=== PATIENT | male | born 1970 | race African-American/Black ===

== ENCOUNTER 2018-11-22 15:46 | Emergency (ER) | payer SELFPAY ==
[2018-11-22] MEDS ORDERED: NORMAL SALINE 1000 ML 1,000 ML IV ONE ×2 (17:04→19:06)
--- NOTE | 2018-11-22 17:12 | ER Document Report ---
ED Medical Screen (RME) - General Chief Complaint: Urinary Problem Stated Complaint: URINARY PROBLEM Time Seen by Provider: 11/22/18 17:04 Mode of Arrival: Ambulatory Information source: Patient Notes: 48-year-old male presents to ED for complaint of frequency urgency of urine and feels like something is just not right with him. He states he is just not feeling like his normal self. He states his vision has become worse over the last several weeks. He states he has not seen an MD and at least 6 or 7 years. He denies any nausea or vomiting or diarrhea. He denies any pain. Patient is alert oriented respirations regular and unlabored speaking in full sentences. He states he does not smoke he drinks maybe once a month and does not use any drugs. 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 I have greeted and performed a rapid initial assessment of this patient. A comprehensive ED assessment and evaluation of the patient, analysis of test results and completion of medical decision making process will be conducted by an additional ED providers. TRAVEL OUTSIDE OF THE [place] IN LAST 30 DAYS: No - Related Data Allergies/Adverse Reactions: No Known Allergies Allergy (Verified 11/22/18 16:01) Past Medical History Renal/ Medical History: Denies: Hx Peritoneal Dialysis Physical Exam - Vital signs Vitals: Temp Pulse Resp BP Pulse Ox 98.5 F 108 H 18 149/94 H 99 11/22/18 16:03 11/22/18 16:03 11/22/18 16:03 11/22/18 16:03 11/22/18 16:03 Course - Vital Signs Vital signs: Temp Pulse Resp BP Pulse Ox 98.5 F 108 H 18 149/94 H 99 11/22/18 16:03 11/22/18 16:03 11/22/18 16:03 11/22/18 16:03 11/22/18 16:03
[2018-11-22 17:59] LABS: ABSOLUTE BASOPHILS # (AUTO) 0.1 10^3/uL (0.0-0.2); ABSOLUTE LYMPHOCYTES (AUTO) 2.1 10^3/uL (0.5-4.7); ABSOLUTE MONOCYTES (AUTO) 0.5 10^3/uL (0.1-1.4); ABSOLUTE NEUT (AUTO) 4.8 10^3/uL (1.7-8.2); BASOPHILS % (AUTO) 0.8 % (0-2); EOSINOPHILS % (AUTO) 0.6 % (0-6); HEMATOCRIT 47.5 % (37.9-51.0); HEMOGLOBIN 15.7 g/dL (13.5-17.0); LYMPHOCYTES % (AUTO) 27.6 % (13-45); MEAN CORPUSCULAR HEMOGLOBIN 26.2 pg (27.0-33.4); MEAN CORPUSCULAR VOLUME 79 fl (80-97); PLATELET COUNT 306 10^3/uL (150-450); RED BLOOD COUNT 5.99 10^6/uL (4.35-5.55); RED CELL DISTRIBUTION WIDTH 16.1 % (11.5-14.0); TOTAL CELLS COUNTED % (AUTO) 100 %; WHITE BLOOD COUNT 7.5 10^3/uL (4.0-10.5)
[2018-11-22 18:11] LABS: VENOUS BLOOD BASE EXCESS -0.8 mmol/L; VENOUS BLOOD HCO3 23.1 mmol/L (20-32); VENOUS BLOOD PCO2 36.4 mmHg (35-63); VENOUS BLOOD PH 7.42 (7.30-7.42)
--- NOTE | 2018-11-22 18:12 | ER Document Report ---
ED General - General Chief Complaint: Urinary Problem Stated Complaint: URINARY PROBLEM Time Seen by Provider: 11/22/18 18:12 Mode of Arrival: Ambulatory Information source: Patient Notes: HISTORY OF PRESENT ILLNESS: Patient is a 48-year-old male with no significant past medical history who p resents with increased thirst and frequency of urination for the past several days. Patient denies fevers or chills, no cough or congestion, no pain or dysuria. Otherwise patient feels normal without weakness or fatigue. Location: Global Onset: "Several days ago" Provocation: None Quality: Increased thirst, urination Radiation: None Severity: Mild to moderate Timing: Constant REVIEW OF SYSTEMS: CONSTITUTIONAL : Denies fever or chills, no sweats. Denies recent illness. EENT: Denies eye, ear, throat, or mouth pain or symptoms. Denies nasal or sinus congestion. CARDIOVASCULAR: Denies chest pain. RESPIRATORY: Denies cough, cold, or chest congestion. Denies shortness of breath, difficulty breathing, or wheezing. GASTROINTESTINAL: Denies abdominal pain. Denies nausea, vomiting, or diarrhea. Denies constipation. GENITOURINARY: Positive for increased frequency of urination. Denies difficulty urinating, painful urination, burning, or blood in urine. MUSCULOSKELETAL: Denies neck or back pain or joint pain or swelling. SKIN: Denies rash or skin lesions. HEMATOLOGIC : Denies easy bruising or bleeding. LYMPHATIC: Denies swollen, enlarged glands. NEUROLOGICAL: Denies altered mental status or loss of consciousness. Denies headache. Denies weakness or paralysis or loss of use of either side. Denies problems with gait or speech. Denies sensory or motor loss. PSYCHIATRIC: Denies anxiety or stress or depression. All other systems reviewed and negative. PHYSICAL EXAMINATION: GENERAL: Well-appearing, well-nourished and in no acute distress. HEAD: Atraumatic, normocephalic. No scalp deformity, depression, or crepitance. EYES: Pupils are 3 mm and equal/round/reactive to light, extraocular movements intact, sclera anicteric, conjunctiva are normal. ENT: Nares patent bilaterally, oropharynx clear without exudates or palatal petechia. Moist mucous membranes. No tonsil hypertrophy. NECK: Normal range of motion, supple without lymphadenopathy. LUNGS: Breath sounds present, equal, and clear to auscultation bilaterally. No wheezes, rales, or rhonchi. HEART: Regular rate and rhythm without murmurs, rubs, or gallops. 2+ peripheral pulses. Normal capillary refill. ABDOMEN: Soft, nontender, nondistended. Normoactive bowel sounds. No guarding, no rebound. No masses appreciated. BACK: Normal contour, no midline tenderness. Rectal exam deferred. GENITAL: Deferred. EXTREMITIES: Normal range of motion, no pitting or edema. No cyanosis. NEUROLOGICAL: No focal neurological deficits. Moves all extremities spontaneously and on command. PSYCH: Normal mood, normal affect. No suicidal thoughts/ideations. No homocidal thoughts/ideations. No hallucinations. SKIN: Warm, dry, normal turgor, no rashes or lesions noted. ASSESSMENT AND PLAN: This patient is a 48-year-old male who presents with polyuria and polydipsia likely secondary to new onset diabetes given glucometer reading of "high." 1. Will obtain labs, urinalysis, VBG, start IV fluids, and give 10 units of regular insulin. 2. Will hydrate with copious IV fluids. TRAVEL OUTSIDE OF THE [place] IN LAST 30 DAYS: No - Related Data Allergies/Adverse Reactions: No Known Allergies Allergy (Verified 11/22/18 16:01) Past Medical History - General Information source: Patient - Social History Smoking Status: Never Smoker Chew tobacco use (# tins/day): No Frequency of alcohol use: None Drug Abuse: None Lives with: Family Family History: Reviewed & Not Pertinent Patient has suicidal ideation: No Patient has homicidal ideation: No - Medical History Medical History: Negative - Past Medical History Cardiac Medical History: Reports: None Pulmonary Medical History: Reports: None EENT Medical History: Reports: None Neurological Medical History: Reports: None Endocrine Medical History: Reports: None Renal/ Medical History: Reports: None. Denies: Hx Peritoneal Dialysis Malignancy Medical History: Reports None GI Medical History: Reports: None Musculoskeletal Medical History: Reports None Skin Medical History: Reports None Psychiatric Medical History: Reports: None Traumatic Medical History: Reports: None Infectious Medical History: Reports: None Surgical Hx: Negative Past Surgical History: Reports: None - Immunizations Immunizations up to date: Yes Hx Diphtheria, Pertussis, Tetanus Vaccination: Yes History of Influenza Vaccine for 07/2017 - 12/2017 Season: Yes Physical Exam - Vital signs Vitals: Temp Pulse Resp BP Pulse Ox 98.5 F 108 H 18 149/94 H 99 11/22/18 16:03 11/22/18 16:03 11/22/18 16:03 11/22/18 16:03 11/22/18 16:03 Course - Re-evaluation Re-evalutation: 11/22/18 20:34 Patient has hyperglycemia greater than 600 without evidence of DKA. We will c ontinue IV hydration and reassess after insulin. 11/22/18 22:52 Hyperglycemia has improved less than 300 and the patient has been hydrated and feels back to normal. He will be discharged home with return precautions and follow-up. Patient voices both understanding and agreeing with the plan. - Vital Signs Vital signs: Temp Pulse Resp BP Pulse Ox 98.5 F 108 H 18 149/94 H 99 11/22/18 16:03 11/22/18 16:03 11/22/18 16:03 11/22/18 16:03 11/22/18 16:03 - Laboratory Result Diagrams: 11/22/18 17:45 11/22/18 17:45 Laboratory results interpreted by me: 11/22/18 11/22/18 11/22/18 16:40 17:45 17:45 RBC 5.99 H MCV 79 L MCH 26.2 L RDW 16.1 H Sodium 135.0 L Chloride 91 L Anion Gap 22 H Glucose 644 H* POC Glucose Calcium 10.7 H Urine Glucose (UA) >=500 H Urine Ketones 20 H 11/22/18 20:15 RBC MCV MCH RDW Sodium Chloride Anion Gap Glucose POC Glucose 299 H Calcium Urine Glucose (UA) Urine Ketones Discharge - Discharge Clinical Impression: Hyperglycemia, New onset type 2 diabetes mellitus Condition: Good Disposition: HOME, SELF-CARE Instructions: Diabetes ([facility], [facility]), Family Physicians / Practices Additional Instructions: You have been evaluated in the Emergency Department for dehydration and elevated blood sugar. While here, you were given IV fluids as well as insulin and your blood sugar has improved dramatically. All of your blood work otherwise was normal, which makes it likely that you have developed diabetes. Please try to review control the amount of carbohydrates in your diet as well as attempt to exercise and get in better shape to control the diabetes. You have been given medications, please take these as instructed. Please start taking metformin twice daily, if you develop side effects with this medication you have been provided with a prescription for glipizide which she may begin taking daily but only if you cannot tolerate the metformin. Please follow-up with your primary physician as instructed in 1-2 weeks or as soon as possible. Return to the Emergency Department if you experience high fevers, chest pain, or any other concerning symptoms. Prescriptions: Glipizide [Glucotrol 5 mg Tablet] 5 mg PO DAILY #30 tablet Lancets [Glucocom Lancets] 1 each MC QID #120 each Lancets [Glucocom] 1 each MC QID #120 each Metformin HCl [Glucophage 500 mg Tablet] 500 mg PO BID #60 tablet Print Language: Bengali
[2018-11-22 18:31] LABS: APPEARANCE,URINE CLEAR; BILIRUBIN,URINE NEGATIVE (NEGATIVE); COLOR,URINE COLORLESS; GLUCOSE, URINE >=500 mg/dL (NEGATIVE); KETONES,URINE 20 mg/dL (NEGATIVE); LEUKOCYTE ESTERASE,URINE NEGATIVE (NEGATIVE); NITRITE,URINE NEGATIVE (NEGATIVE); PROTEIN,URINE NEGATIVE (NEGATIVE); URINE SPECIFIC GRAVITY 1.024; UROBILINOGEN,URINE NEGATIVE mg/dL (<2.0)
[2018-11-22 18:41] LABS: ALANINE AMINOTRANSFERASE 50 U/L (21-72); ALBUMIN 4.9 g/dL (3.5-5.0); ALKALINE PHOSPHATASE 92 U/L (38-126); ASPARTATE AMINO TRANSFERASE 42 U/L (17-59); BILIRUBIN,DIRECT 0.4 mg/dL (0.0-0.4); BILIRUBIN,TOTAL 1.2 mg/dL (0.2-1.3); BLOOD UREA NITROGEN 20 mg/dL (7-20); CALCIUM 10.7 mg/dL (8.4-10.2); POTASSIUM 4.9 mmol/L (3.6-5.0); TOTAL PROTEIN 7.7 g/dL (6.3-8.2)
[2018-11-22 18:46] LABS: CARBON DIOXIDE 22 mmol/L (22-30); CHLORIDE 91 mmol/L (98-107)
[2018-11-22 18:51] LABS: ANION GAP 22 (5-19)
[2018-11-22 18:53] LABS: GLUCOSE 644 mg/dL (75-110)
[2018-11-22] MEDS ORDERED: INSULIN REG, HUMAN 100 UNIT/ML 3 ML VIAL (PYX) IV ONE (19:07)
[2018-11-22 23:15] VITALS: BP 144/78
== END 2018-11-22 23:14 | disposition home or self-care (01) ==
LOC: ER 15:46
DX: E11.65 Type 2 diabetes mellitus with hyperglycemia (principal); R35.0 Frequency of micturition
CPT/HCPCS: 99283; 96360; 96361; 36415; 82962; 85025; 80053; 81001; 82803; J1815; J7030